=== PATIENT | male | born 1975 | race Native Hawaiian/Other Pacific Islander ===

== ENCOUNTER 2018-07-07 23:44 | Emergency (ER) | payer SELFPAY ==
[2018-07-08 00:07] VITALS: BP 128/89; PULSE 58; RESP 14; TEMP 97.5; O2SAT 99
--- NOTE | 2018-07-08 00:41 | C.PDOC ---
Time Seen by Provider: 07/08/18 00:40 Chief Complaint (Nursing): Abdominal Pain Past Medical History Vital Signs: Last Vital Signs Temp 97.5 F L 07/08/18 00:04 Pulse 58 L 07/08/18 00:04 Resp 14 07/08/18 00:04 BP 128/89 07/08/18 00:04 Pulse Ox 99 07/08/18 00:04 Primary Care Provider: Shaik Schumacher - Social History Hx Tobacco Use: No Hx Alcohol Use: No Hx Substance Use: No - Immunization History Hx Tetanus Toxoid Vaccination: Yes Hx Influenza Vaccination: No Hx Pneumococcal Vaccination: No ED Course And Treatment O2 Sat by Pulse Oximetry: 99 Disposition Counseled Patient/Family Regarding: Studies Performed, Diagnosis - Disposition Disposition Time: 00:41
== END 2018-07-08 00:40 | disposition left against medical advice (07) ==
LOC: C.ER 23:44
DX: Z02.89 Encounter for other administrative examinations (principal); R10.12 Left upper quadrant pain